=== PATIENT | male | born 1945 | race Caucasian/White ===

== ENCOUNTER → 2017-03-18 | Outpatient (CLI) | payer OTHER ==
[~2017-03-18] MED LIST: REGADENOSON 0.4 MG/5 ML SYR IVP ONE
--- NOTE | 2017-03-18 14:34 | CPR ---
[f rep st] NONINVASIVE CARDIAC PROCEDURE REPORT DATE OF PROCEDURE: 03/18/2017 PROCEDURE PERFORMED: Lexiscan nuclear stress test. REASON FOR TEST: Presurgical cardiac evaluation prior to surgery for kidney cancer. Resting EKG shows a regular sinus rhythm with a rate of 71. Resting blood pressure 108/70. Oxygen saturation 88%. There are no ischemic changes on the initial EKG. LEXISCAN PORTION: He was given Lexiscan rapidly, followed by saline flush. Cardiolite was then inj ected, followed by saline flush per protocol. Heart rate peaked at 92. Blood pressure with injecti on 100/60. Oxygen saturation 90%. He had no symptoms. There were no EKG changes with the stress p ortion. RECOVERY: Heart rate 92, blood pressure 110/64, oxygen saturation 91%. He remained pain free. Caf feine was given. At this time, he currently is stable for nuclear imaging. /[id number]/MODL
== END ==
LOC: FIMAGING 11:37
PROVIDERS: ATTEND Internal Medicine Cardiovascular Disease
DX: Z01.810 Encounter for preprocedural cardiovascular examination (principal); I25.10 Atherosclerotic heart disease of native coronary artery without angina pectoris; I73.9 Peripheral vascular disease, unspecified
CPT/HCPCS: 78452; 93017; A9500; J2785

== ENCOUNTER → 2018-05-14 | Outpatient (CLI) | payer OTHER | LOC: FIMAGING 13:48 | DX: M25.461 Effusion, right knee (principal); M17.11 Unilateral primary osteoarthritis, right knee ==

== ENCOUNTER → 2018-06-04 | Outpatient (CLI) | payer OTHER | LOC: FIMAGING 10:25 | PROVIDERS: ATTEND Family Medicine | DX: M19.022 Primary osteoarthritis, left elbow (principal); M85.822 Other specified disorders of bone density and structure, left upper arm ==